=== PATIENT | male | born 2000 | race Caucasian/White ===

== ENCOUNTER 2020-03-24 10:43 | Emergency (ER) | payer OTHER ==
[~2020-03-24] VITALS: Ht 185.4 cm; Wt 107.6 kg
[2020-03-24 10:50] VITALS: BP 153/90
--- NOTE | 2020-03-24 11:40 | RAD ---
Examination: KNEE RIGHT 4V History: Reason: knee injury, pt states having hx of knee popping out of place and back. / Comparison/Correlation: None Findings: 4 images of the right knee were obtained. Joint spaces are adequate. No acute fracture or bone destruction. Mild contour deformity of the lateral femoral condyle articular aspect is most likely developmental. Soft tissues are unremarkable. No definite joint effusion. No definite degenerative change. Impression: No acute process. No definite suspicious process. Electronically signed by: Anurag Bettencourt MD (03/24/2020 11:37 AM) [id number]
--- NOTE | 2020-03-24 12:02 | PHYS DOC ---
Past Medical History Past Medical History: No Pertinent History Past Surgical History: No Surgical History Smoking Status: Never Smoker Alcohol Use: None General Adult EDM: Chief Complaint: KNEE INJURY HPI: HPI: Patient is a 19 year old male who presents with R knee pain. 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 He states he thought it was the knee cap. He has been having pain since that happened. He is able to walk since it happened. Review of Systems: Review of Systems: general: Denies fever, chills, sweats, fatigue Eyes: Denies drainage, blurred vision, eye redness HENT: Denies rhinorrhea, sore throat, earache Respiratory: Denies cough, shortness of breath, wheezing Cardiac: Denies edema, palpitations, chest pain GI: Denies abdominal pain, Nausea, vomiting MSK: Denies back pain, neck pain Skin: Denies rash, jaundice Neuro: Denies headache, dizziness Psychiatric: Denies SI/HI Heart Score: Risk Factors: Risk Factors: DM, Current or recent (<one month) smoker, HTN, HLP, family history of CAD, obesity. Risk Scores: Score 0 - 3: 2.5% MACE over next 6 weeks - Discharge Home Score 4 - 6: 20.3% MACE over next 6 weeks - Admit for Clinical Observation Score 7 - 10: 72.7% MACE over next 6 weeks - Early Invasive Strategies Allergies: Allergies: Allergies Coded Allergies Type Severity Reaction Last Updated Verified No Known Drug Allergies 03/24/20 No Physical Exam: PE: General: Awake, alert, NAD. Well Nourished, well hydrated. Cooperative HEENT: Atraumatic, EOMI, PERRL, airway patent, moist oral mucosa Neck: Supple, trachea midline Respiratory: CTA bilaterally, normal effort, no wheezing/crackles CV: RRR, no murmur, cap refill <2 GI: Soft, nondistended, nontender, no masses MSK: No obvious deformities, mild decreased range of motion of right knee due to pain, tenderness along the patella, no obvious swelling or deformity Skin: Warm, dry, intact Neuro: A&O x3, speech NL, sensory and motor grossly intact, no focal deficits Psych: Normal affect, normal mood, not suicidal or homicidal Current Patient Data: Vital Signs: Vital Signs Date Time Temp Pulse Resp B/P (MAP) Pulse Ox O2 Delivery O2 Flow Rate FiO2 03/24/20 10:50 98.7 62 16 153/90 (111) 97 Room Air 98.7 EKG: EKG: [] Radiology/Procedures: Radiology/Procedures: [] Course & Med Decision Making: Course & Med Decision Making Pertinent Labs and Imaging studies reviewed. (See chart for details) Patient presents with knee pain. He likely had a patella dislocation and reduced on its own. Xray normal. Patient will be placed in immobilizer and will follow up with ortho. Patient's test results and vitals while in the ED were fully reviewed and discussed with the patient. Patient is stable and at this time does not need admission to the hospital. We have discussed strict return precautions and the importance of following up with their Primary Care Physician. Patient stated understanding and was given an opportunity to ask any questions. Patient is in agreement with plan. Dragon Disclaimer: Dragon Disclaimer: This electronic medical record was generated, in whole or in part, using a voice recognition dictation system. Departure Departure Impression: Primary Impression: Knee pain Disposition: HOME, SELF-CARE Condition: STABLE Referrals: NO PCP (PCP) ARCENIO IBARRA MD Patient Instructions: Knee Pain, [id number] Justicifation of Admission Dx: Justifications for Admission: Justification of Admission Dx: No JEISON YOUNG MD Mar 24, 2020 12:02
== END 2020-03-24 12:44 | disposition home or self-care (01) ==
LOC: ER 10:43
DX: M25.561 Pain in right knee (principal); X50.3XXA Overexertion from repetitive movements, initial encounter; Y93.89 Activity, other specified; Y92.69 Other specified industrial and construction area as the place of occurrence of the external cause; Y99.0 Civilian activity done for income or pay
CPT/HCPCS: 29505; 73564; 99283